=== PATIENT | female | born 1950 | race Caucasian/White ===

== ENCOUNTER 2019-06-08 07:50 | Inpatient (IN) | payer OTHER ==
[2019-05-23 13:01] LABS: HEMATOCRIT 36.9 % (37.0-47.0); HEMOGLOBIN 12.1 gm/dL (12.0-15.0); MCH 28.5 pg (26.0-34.0); MCHC 32.9 g/dL (28.0-37.0); MCV 86.5 fL (80.0-100.0); RBC 4.26 mil/uL (4.20-5.00); RDW 16.4 % (10.5-14.5)
[2019-05-23 13:05] LABS: URINE BILIRUBIN NEGATIVE (Negative); URINE BLOOD NEGATIVE (Negative); URINE CLARITY CLEAR; URINE COLOR YELLOW; URINE GLUCOSE-RANDOM* 2+ (Negative); URINE KETONES NEGATIVE (Negative); URINE LEUKOCYTES-REFLEX NEGATIVE (Negative); URINE NITRITE-REFLEX NEGATIVE (Negative); URINE PROTEIN (DIPSTICK) NEGATIVE (Negative); URINE UROBILINOGEN 0.2 E.U./dl (0.2-1.0)
[2019-05-23 13:11] LABS: ALBUMIN 3.5 g/dL (3.4-5.0)
[2019-05-24 02:05] LABS: GLYCOHEMOGLOBIN (HGB A1C) 6.7 % (4.8-5.6)
[2019-06-08] VITALS (9 sets, daily range): BP systolic 95–147; BP diastolic 53–73
[~2019-06-08] VITALS: Ht 142.2 cm; Wt 76.0 kg
[~2019-06-08 07:50] MED LIST: BENTYL 10 MG CA10 M1 PO; CRESTOR40 MG PO; DIAZEPAM 2MG TAB2 MG PO; DRAMAMINE PO; GLUCOPHAGE1000 MG PO; HYQVIA 2.52.5 GM/25 IV; LOPRESSOR25 PO; NORCO 5-325 TA1 EAC1 PO; PLAVIX 75 MG TA75 M1 PO; REMERON15 MG PO; VALACYCLOVIR500 MG PO; VENTOLIN HFA 1818 GM INH; VITAMIN D-32000 UNIT PO; ZOFRAN ODT4 MG SUBLING; ZOLOFT100 MG PO
--- NOTE | 2019-06-08 21:23 | NUR ---
Admitted to the floor this evening at 1800 from OR, S/P TKR - Right. Transferred to room safely. A+O. 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 Pt complained of nausea- PRN medication given as prescribed. Able to use bedside commode. Pt tolerated water, diet advanced to regular diet- tolerated well, no vomiting and abdominal pain noted afterwards. SONIDO dressing, SCD, TEDs and polar pack in place at Rt knee. On blood sugar monitoring- taken and recorded, no insulin coverage, on oral metformin- taken as prescribed. Able to swallow tablets w/o difficulty. Pain scale of 3-4/10, informed pt pain meds available as needed. Pt's at bedside. With IV at R hand, IVF of D51/2NS started as prescribed rate. Vital signs stable. SONIDO dressing C/D/I. To continue admission care and monitoring to pt.
[2019-06-09 00:09] VITALS: BP 108/53
[2019-06-09 00:15] VITALS: BP 108/53
[2019-06-09 01:05] VITALS: BP 116/59
--- NOTE | 2019-06-09 05:24 | NUR ---
Assumed pt care at 1900. A/OX4, VSS. C/o pain to Right knee medicated per EMAR with relief reported,polar ice applied. SONIDO dsg in place C/D/I. Pt's blood sugar elevated at HS rechecked at midnight still high;declined to have Doctor contacted for insulin orders stating she will be fine and requested for more snacks then.Spouse at the bedside for the night. Pt is up with assist of 1,RW/GB to BS without problems. Fall precautions in place,calls appropriately. Call light/personal items within reach. Wears a CPAP at night.
[2019-06-09 05:53] LABS: HEMATOCRIT 31.3 % (37.0-47.0); HEMOGLOBIN 10.3 gm/dL (12.0-15.0); MCH 28.9 pg (26.0-34.0); MCHC 32.8 g/dL (28.0-37.0); MCV 88.1 fL (80.0-100.0); RBC 3.55 mil/uL (4.20-5.00); RDW 16.7 % (10.5-14.5); WBC 8.2 thou/uL (4.0-11.0)
[2019-06-09 06:07] LABS: CALCIUM 8.1 mg/dL (8.5-10.1); CREATININE 1.2 mg/dL (0.6-1.0); MAGNESIUM 2.2 mg/dL (1.8-2.4); POTASSIUM 4.7 mmol/L (3.5-5.1)
[2019-06-09 08:39] VITALS: BP 105/58
[2019-06-09] MEDS ORDERED: NEURONTIN 300300 M1 PO ×2 (12:00→12:02)
--- NOTE | 2019-06-09 13:22 | NUR ---
PT ADMITTED RELATED TO RIGHT TKR. CM REVIEWED CHART AND SPOKE WITH CARE TEAM. CMT MET WITH PT AT BEDSIDE THIS DAY. PT IS A&O X4. CM ROLE INTRODCUED. PT INDICATED SHE LIVES IN A HOUSE WITH HER SPOUSE WITH 2 STEPS TO ENTER AND NO SHE WILL NEED TO USE UPON DC. 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 PT INDICATED SHE NEEDS A FWW. CM ORDRED FWW THROUGH PP AND IT WAS DELIVERED. PT IS ETABLIHSED WITH OP PT AT [facility] UPON DC. PT INDICATED SHE PLANS TO DC HOME TODAY. NO OTHER CM INTERVENTION INDICATED. CASE CLOSED.
[2019-06-09 14:13] VITALS: BP 105/58
--- NOTE | 2019-06-09 14:41 | NUR ---
Assumed pt care this am SONIDO dressing dry and intact with polar ice running. Pain managed with medication and was able to work with PT and was able to ambulate the halls. VS stable, medication and diet is tolerated and pain managed. IV removed, DC instructions, prescriptions and drug info sheet given to the pt. Pt is taking her CIPAP home and polar ice. POC followed no signs or verbalizations of distress have been noted.
--- NOTE | 2019-06-10 07:36 | O ---
[facility] [address] OPERATIVE REPORT Name: NASH CAMEJO Room #: 444-P [facility] IN M.R.#: [id number] Admission: 06/08/19 Attend Phys: Francisco Leiva MD Discharge: 06/09/19 Date of : 52 Report #: [id number] THIS REPORT FOR: //name// CC: Everettfabiola Leiva DATE OF SERVICE: 06/08/2019 PREOPERATIVE DIAGNOSIS: Right knee osteoarthritis. POSTOPERATIVE DIAGNOSIS: Right knee osteoarthritis. PROCEDURE: Right total knee arthroplasty using Navio robotic assistance. SURGEON: Francisco Leiva MD COUNTY TAX ASSESSOR: Chantal Damian PA-C INDICATIONS FOR COUNTY TAX ASSESSOR: Throughout the case, extensive retraction and manipulation of the knee was required. This was afforded to me by my dietitian assistant. ANESTHESIA: LMA with an adductor canal block. IMPLANTS: Nazario [employer] Nephew size 3 Legion cobalt chrome posterior stabilized femur, a size 2 tibia, size 9 highly constrained polyethylene and size 29 patella. TOURNIQUET TIME: 51 minutes. ESTIMATED BLOOD LOSS: 25 mL. COMPLICATIONS: None. SPECIMENS: None. CONDITION UPON LEAVING THE OPERATING ROOM: Stable. INDICATIONS FOR PROCEDURE: The patient is a 68-year-old female with right knee osteoarthritis. She had failed conservative measures for this and after discussion with her, she elected for right total knee arthroplasty. DESCRIPTION OF PROCEDURE: Risks, benefits, alternatives, complications were discussed in detail with the patient including but not limited to risk of anesthesia, risk of damage to nerves, arteries, blood vessels, risk for infection, bleeding, risk for continued knee pain and need for reoperation. Informed consent was obtained from the patient. Right knee was appropriately [address] [address] OPERATIVE REPORT Name: NASH CAMEJO Room #: 444-P DIS IN M.R.#: [id number] Admission: 06/08/19 Attend Phys: Francisco Leiva MD Discharge: 06/09/19 Date of : 52 Report #: [id number] marked in the preoperative holding area. Adductor canal block was placed by Anesthesia. She was brought to the operating room and placed in supine position on operating room table. LMA anesthesia was induced without complication. Tourniquet was placed on the right thigh. Right lower extremity was prepped and draped in normal sterile fashion. Timeout was performed properly identifying the patient and procedure as well as the instrumentation and implants. All in the operating room were in agreement. Right lower extremity was exsanguinated, tourniquet was inflated. Tourniquet time was 67 minutes. Standard midline approach to the knee was made with 10 blade through the skin. Dissection was taken down sharply to the fascia and deep flaps were developed medially and laterally. Fresh 10 blade was used to make a medial parapatellar arthrotomy and the knee was inspected. There was severe medial compartment osteoarthritis with moderate lateral and patellofemoral osteoarthritis. ACL and PCL were removed sharply. Reference pins were placed in the femur and the tibia and the knee was digitally mapped using the OneTag robotic system. We sized the size 3 femur and a size 2 tibia with a size 11 polyethylene. After acceptance of the intraoperative plan, the distal femoral cut was made with a Navio bur. The 4-in-1 cutting block was placed. Anterior, posterior and chamfer cuts were made on the femur. Attention was then turned to the tibia. The remainder of the menisci removed with Bovie cautery. Tibial resection guide was pinned in place using the Navio for placement and the tibial resection was made. Flexion and extension gaps were then checked and she was tight medially, both in flexion and extension. A limited medial release was performed using the pie crust technique. This balanced the knee well medially. She was still lax laterally. It was felt that we could make up for this with a highly constrained implant. After this, the tibia was sized, found to be a size 3. Size 2 tibial trial was placed, pinned and punched. Size 3 femoral trial was placed and the box cut was made. This was then trialed with a size 9 highly constrained polyethylene. Knee was taken through range of motion, found to have good balance both medially and laterally throughout range of motion that was verified manually as well as digitally. After this, 9 mm was taken off the posterior surface of the patella and a size 29 patellar trial button was placed. Knee was taken through range of motion, found to be stable, found to have good patellar tracking. After this, trial components were removed. Bony ends were thoroughly irrigated with normal saline. A final size 2 tibia, size 3 Legion cobalt chrome posterior stabilized femur and a size 29 patella were cemented in place using standard cementation techniques. While the cement cured, a periarticular injection consisting of morphine, ropivacaine, epinephrine and Toradol was placed around the knee joint capsule. After the cement cured, the tourniquet was deflated. Hemostasis was obtained with Bovie cautery. Final size 9 highly constrained polyethylene was placed. A gram of vancomycin was placed deep in the joint. The fascia was closed with 0 Vicryl, skin was closed with 2-0 Vicryl, 3-0 Monocryl and a SONIDO [address] [address] OPERATIVE REPORT Name: NASH CAMEJO Room #: 444-P DIS IN [facility].#: [id number] Admission: 06/08/19 Attend Phys: Francisco Leiva MD Discharge: 06/09/19 Date of : 52 Report #: [id number] dressing was applied. The patient tolerated this procedure well and went to the recovery room under care of anesthesia postoperatively. <ELECTRONICALLY SIGNED> By: Francisco Leiva MD 06/10/19 0736 [id number] 1823 Francisco Leiva MD /nt
== END 2019-06-09 16:37 | disposition home or self-care (01) | DRG 470 ==
LOC: OR 07:50 → EDSTATUS 07:51 → PRE 07:53 → 4S 12:35 → TBA 12:35 → 4S 17:04
PROVIDERS: Nurse Practitioner Acute Care; ADMIT Orthopaedic Surgery
DX: M17.11 Unilateral primary osteoarthritis, right knee (principal); G47.33 Obstructive sleep apnea (adult) (pediatric); E78.5 Hyperlipidemia, unspecified; F41.9 Anxiety disorder, unspecified; K21.9 Gastro-esophageal reflux disease without esophagitis; Z96.642 Presence of left artificial hip joint; J45.909 Unspecified asthma, uncomplicated; I25.10 Atherosclerotic heart disease of native coronary artery without angina pectoris; E11.9 Type 2 diabetes mellitus without complications; Z88.8 Allergy status to other drugs, medicaments and biological substances; Z88.1 Allergy status to other antibiotic agents; Z91.040 Latex allergy status; Z83.3 Family history of diabetes mellitus; Z95.5 Presence of coronary angioplasty implant and graft; Z80.1 Family history of malignant neoplasm of trachea, bronchus and lung; Z87.891 Personal history of nicotine dependence; Z90.49 Acquired absence of other specified parts of digestive tract; Z79.899 Other long term (current) drug therapy
CPT/HCPCS: 10102; 50010; 50101; 50415; 50954; 51130; 51225; 51320; 52001; 52282; 53000; 53078; 53364; 54118; 56527; 56528; 57095; 57103; 57110; 57127; 57180; 62110; 62900; 64039; 70005